=== PATIENT | male | born 1955 | race Caucasian/White ===

== ENCOUNTER → 2016-12-13 | Outpatient (CLI) | payer OTHER ==
[2016-12-13 17:52] LABS: BUN 17 mg/dL (7-18); HEMOGLOBIN 15.5 g/dL (14.1-18.0)
[2016-12-13 17:53] LABS: LYMPH # 3.7 K/mm3 (0.7-4.5); LYMPH % 41.6 % (10-50)
[2016-12-13 18:21] LABS: GFR (ESTIMATED) 76 ML/MIN (>60)
== END ==
LOC: LAB 15:34
PROVIDERS: Emergency Medicine
DX: E78.5 Hyperlipidemia, unspecified (principal)

== ENCOUNTER 2017-07-24 05:41 | Emergency (ER) | payer OTHER ==
[~2017-07-24] VITALS: Ht 180.3 cm; Wt 95.3 kg
[2017-07-24] MEDS ORDERED: LOVASTATIN40 MG PO (05:51)
--- NOTE | 2017-07-24 06:04 | Emergency Room Report ---
History of Present Illness Time Seen by MD Sanchez Presenting Problem in Triage Pt arrived:Walked Presenting Problem:PT C/O PELVIC PAIN.PT REPORTS HURTS WHEN HE HOLDS HIS URINE. 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 N Clinical Suspician of Infection? N Mental Status: 1 - Regular (Normal Baseline) Sepsis Risk:Low Sepsis Risk Have you (or family members/close friends) recently traveled outside the [place]? N If Yes, where/when: Have you had exposure to infectious disease within the past month? N TB? Other? Specify: Source patient, RN notes reviewed, family, old records Exam Limitations no limitations Comment pt with lower abd pain which started last few days with no fever or vomiting Cardiac Chest Pain Chest pain indicative of cardiac No Timing/Duration this evening Severity moderate ALLERGIES Coded Allergies: No Known Allergies (05/14/16) Home Medications Reported Medications Lovastatin 40 MG PO DAILY #30 History Medical History General Angina: No [place]: No Hypertension? No Hyperlipidemia? Yes COPD? No Asthma? No CVA? No Seizures? No Diabetes? No GB Disease: No MRSA? No TB? No Cancer? No Immunization Hx Ped.Immunizations UTD No DT/Tetanus 1-4 YRS Surgical Hx Previous Surgery?Y LIVER BIOPSY APPENDECTOMY Social History Smoking Hx Smoker: Former Smoker Tobacco: No Type N/A Alcohol Alcohol: No Drugs none Review of Systems All Other Systems Reviewed and Negative Constitutional denies fever Eyes denies drainage ENT denies: ear discharge, epistaxis. Respiratory denies cough, denies shortness of breath, denies wheezing Cardiovascular denies chest pain, denies palpitations, denies syncope Gastrointestinal see HPI, denies abdominal pain, denies vomiting, other Genitourinary denies: dysuria, frequency, hesitancy, hematuria. Musculoskeletal denies back pain, denies joint pain, denies joint swelling, denies neck pain Skin denies rash Psychiatric/Neurological denies headache, denies seizure Physical Exam Vital Signs Vital Signs Date Time Temp Pulse Resp B/P Pulse O2 O2 Flow FiO2 Ox Delivery Rate 07/24 0759 80 20 151/100 97 07/24 0728 68 20 159/94 97 09/07 0652 98.7 72 20 157/99 97 07/24 0542 97.7 83 20 145/98 98 - WBC >12,000 or <4,000 or 10% bands? 2 or more SIRS Criteria Met? B/P:159/94 MAP:113 Creatinine >2.0? UA output<0.5ml/kg/hr for 2 hrs? Platelet count >100,000? Lactate >2.0mmol/1? INR >1.2 or PTT > than 60 sec? Evidence of Organ Dysfunction? Provider documented clinical suspician of infection? N Sepsis Criteria Count: 1 Sepsis Risk: Low Sepsis Risk General Appearance no apparent distress Eye Exam - bilateral eye PERRL, bilateral eye EOMI Ear, Nose, Throat normal ENT inspection Neck supple Respiratory Status No: respiratory distress. Lung Sounds bilateral: lungs clear. Cardiovascular regular rate/rhythm, systolic murmur Peripheral Pulses Pulses normal Yes Gastrointestinal soft, no organomegaly, no pulsatile mass, no guarding, no rebound Extremities normal inspection Strength 4 Upper Ext (L), 4 Upper Ext (R), 4 Lower Ext (L), 4 Lower Ext (R) Neurologic alert, veneer layer II-XII nml as tested, no motor/sensory deficits Reflexes Reflexes normal No Mental status normal mood/affect Skin intact Medical Decision Making LABS/Meds/Orders Pt receiving controlled substance in ED? No Results/Orders Laboratory Tests 07/24/17 0650: Urine Color YELLOW, Urine Appearance CLEAR, Urine pH 7.5, Ur Specific [place] 1.015, Urine Protein NEGATIVE, Urine Ketones NEGATIVE, Urine Blood NEGATIVE, Urine Nitrate NEGATIVE, Urine Bilirubin NEGATIVE, Urine Urobilinogen 0.2, Ur Leukocyte Esterase NEGATIVE, Urine WBC OCC, Urine Bacteria 1+, Urine Mucus 1+, Urine Glucose NEGATIVE 07/24/17 0605: Sodium 138, Potassium 4.1, Chloride 101, Carbon Dioxide 28, BUN 13, Creatinine 0.9, Estimated Creat Clear 118, Estimated GFR (MDRD) 86, Glucose 113 H, Calcium 9.2, Total Bilirubin 1.2 H, AST 15, ALT 38, Alkaline Phosphatase 70, Total Protein 7.8, Albumin 4.2, Globulin 3.6 H, Albumin/Globulin Ratio 1.2, WBC 12.9 H, RBC 4.95, Hgb 14.7, Hct 42.0, MCV 84.8, RDW 13.0, Plt Count 212, MPV 7.7, Gran % 65.7, Gran # 8.5 H, Lymphocytes % 27.2, Monocytes % 6.1, Eosinophils % 0.8, Basophils % 0.3, Lymphocytes # 3.5, Monocytes # 0.8, Eosinophils # 0.1, Basophils # 0.0, PUBS MCHC 34.9, MCH 29.6 Current Medication Orders Sig/Paulo Start time Last Medication Dose Route Stop Time Status Admin Ketorolac 30 MG ONCE ONE 07/24 800 DC Tromethamine IV 07/24 801 Ketorolac 0 .STK-MED ONE 07/24 800 DC Tromethamine .ROUTE Levofloxacin 500 MG ONCE ONE 07/24 800 DC PO 07/24 801 Levofloxacin 0 .STK-MED ONE 07/24 800 DC .ROUTE Metronidazole 100 ML ONCE ONE 07/24 800 AC IV 07/24 859 Sodium Chloride 1,000 ML .Q1H1M 07/24 630 DC 07/24 IV 07/24 730 0622 Sodium Chloride 10 ML PRN PRN 07/24 630 AC IV 07/25 06 Sodium Chloride 10 ML PRN PRN 07/24 600 AC IV 07/25 0556 Sodium Chloride 1,000 ML .STK-MED ONE 07/24 600 DC IV Orders Procedure Date/time Status DIET-NOTHING BY MOUTH 07/[address] ABD & PELVIS W/O CONTRAST 07/[address] ABD/PELVIS REQ 07/24 557 Complete IV SALINE LOCK 07/24 557 Active URINALYSIS/COMPLETE 07/24 557 Complete CBC WITH AUTO DIFF 07/24 557 Complete CHEM 12 PROFILE 07/24 557 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 of ischemic chgs XRAY/CT/US XRAY/CT/US CT abdomen, pelvis CT interpretation by discussed w/radiologist Time results known: 799 CT Results abnormal (diverticulitis) Departure Departure Time of Disposition 075 Disposition DC Home or Self Care(routine) Clinical Impression Primary Impression: Diverticulitis Qualifiers: Diverticulitis site: large intestine Diverticulitis bleeding: without bleeding Diverticulitis complication: without perforation or abscess Qualified Code: K57.32 - Diverticulitis of large intestine without perforation or abscess without bleeding Condition STABLE Patient Instructions DI for Diverticulitis Additional Instructions use meds and see pcp friday or friday for follow up Discharge Counseling Counseled pt/family regarding diagnosis, test results, medications/RX, follow up needs Prescriptions Current Visit Scripts Ciprofloxacin HCl (Cipro 500MG TAB) 500 MG PO BID #14 TAB Metronidazole (Flagyl) 500 MG PO TID #21 TAB HYDROCODONE/ACETAMINOPHEN ([place] 5-325 Tablet) 1 TAB PO Q6HP PRN pain #10 TAB ED Critical Care Critical Care No at 0801
--- NOTE | 2017-07-24 06:04 | Emergency Room Report ---
History of Present Illness Time Seen by MD Sanchez Presenting Problem in Triage Pt arrived:Walked Presenting Problem:PT C/O PELVIC PAIN.PT REPORTS HURTS WHEN HE HOLDS HIS URINE. 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 N Clinical Suspician of Infection? N Mental Status: 1 - Regular (Normal Baseline) Sepsis Risk:Low Sepsis Risk Have you (or family members/close friends) recently traveled outside the [place]? N If Yes, where/when: Have you had exposure to infectious disease within the past month? N TB? Other? Specify: Source patient, RN notes reviewed, family, old records Exam Limitations no limitations Comment pt with lower abd pain which started last few days with no fever or vomiting Cardiac Chest Pain Chest pain indicative of cardiac No Timing/Duration this evening Severity moderate ALLERGIES Coded Allergies: No Known Allergies (05/14/16) Home Medications Reported Medications Lovastatin 40 MG PO DAILY #30 History Medical History General Angina: No [place]: No Hypertension? No Hyperlipidemia? Yes COPD? No Asthma? No CVA? No Seizures? No Diabetes? No GB Disease: No MRSA? No TB? No Cancer? No Immunization Hx Ped.Immunizations UTD No DT/Tetanus 1-4 YRS Surgical Hx Previous Surgery?Y LIVER BIOPSY APPENDECTOMY Social History Smoking Hx Smoker: Former Smoker Tobacco: No Type N/A Alcohol Alcohol: No Drugs none Review of Systems All Other Systems Reviewed and Negative Constitutional denies fever Eyes denies drainage ENT denies: ear discharge, epistaxis. Respiratory denies cough, denies shortness of breath, denies wheezing Cardiovascular denies chest pain, denies palpitations, denies syncope Gastrointestinal see HPI, denies abdominal pain, denies vomiting, other Genitourinary denies: dysuria, frequency, hesitancy, hematuria. Musculoskeletal denies back pain, denies joint pain, denies joint swelling, denies neck pain Skin denies rash Psychiatric/Neurological denies headache, denies seizure Physical Exam Vital Signs Vital Signs Date Time Temp Pulse Resp B/P Pulse O2 O2 Flow FiO2 Ox Delivery Rate 07/24 0759 80 20 151/100 97 07/24 0728 68 20 159/94 97 09/07 0652 98.7 72 20 157/99 97 07/24 0542 97.7 83 20 145/98 98 - WBC >12,000 or <4,000 or 10% bands? 2 or more SIRS Criteria Met? B/P:159/94 MAP:113 Creatinine >2.0? UA output<0.5ml/kg/hr for 2 hrs? Platelet count >100,000? Lactate >2.0mmol/1? INR >1.2 or PTT > than 60 sec? Evidence of Organ Dysfunction? Provider documented clinical suspician of infection? N Sepsis Criteria Count: 1 Sepsis Risk: Low Sepsis Risk General Appearance no apparent distress Eye Exam - bilateral eye PERRL, bilateral eye EOMI Ear, Nose, Throat normal ENT inspection Neck supple Respiratory Status No: respiratory distress. Lung Sounds bilateral: lungs clear. 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 No Results/Orders Laboratory Tests 07/24/17 0650: Urine Color YELLOW, Urine Appearance CLEAR, Urine pH 7.5, Ur Specific [place] 1.015, Urine Protein NEGATIVE, Urine Ketones NEGATIVE, Urine Blood NEGATIVE, Urine Nitrate NEGATIVE, Urine Bilirubin NEGATIVE, Urine Urobilinogen 0.2, Ur Leukocyte Esterase NEGATIVE, Urine WBC OCC, Urine Bacteria 1+, Urine Mucus 1+, Urine Glucose NEGATIVE 07/24/17 0605: Sodium 138, Potassium 4.1, Chloride 101, Carbon Dioxide 28, BUN 13, Creatinine 0.9, Estimated Creat Clear 118, Estimated GFR (MDRD) 86, Glucose 113 H, Calcium 9.2, Total Bilirubin 1.2 H, AST 15, ALT 38, Alkaline Phosphatase 70, Total Protein 7.8, Albumin 4.2, Globulin 3.6 H, Albumin/Globulin Ratio 1.2, WBC 12.9 H, RBC 4.95, Hgb 14.7, Hct 42.0, MCV 84.8, RDW 13.0, Plt Count 212, MPV 7.7, Gran % 65.7, Gran # 8.5 H, Lymphocytes % 27.2, Monocytes % 6.1, Eosinophils % 0.8, Basophils % 0.3, Lymphocytes # 3.5, Monocytes # 0.8, Eosinophils # 0.1, Basophils # 0.0, PUBS MCHC 34.9, MCH 29.6 Current Medication Orders Sig/Paulo Start time Last Medication Dose Route Stop Time Status Admin Ketorolac 30 MG ONCE ONE 07/24 800 DC Tromethamine IV 07/24 801 Ketorolac 0 .STK-MED ONE 07/24 800 DC Tromethamine .ROUTE Levofloxacin 500 MG ONCE ONE 07/24 800 DC PO 07/24 801 Levofloxacin 0 .STK-MED ONE 07/24 800 DC .ROUTE Metronidazole 100 ML ONCE ONE 07/24 800 AC IV 07/24 859 Sodium Chloride 1,000 ML .Q1H1M 07/24 630 DC 07/24 IV 07/24 730 0622 Sodium Chloride 10 ML PRN PRN 07/24 630 AC IV 07/25 06 Sodium Chloride 10 ML PRN PRN 07/24 600 AC IV 07/25 0556 Sodium Chloride 1,000 ML .STK-MED ONE 07/24 600 DC IV Orders Procedure Date/time Status DIET-NOTHING BY MOUTH 07/[address] ABD & PELVIS W/O CONTRAST 07/[address] ABD/PELVIS REQ 07/24 557 Complete IV SALINE LOCK 07/24 557 Active URINALYSIS/COMPLETE 07/24 557 Complete CBC WITH AUTO DIFF 07/24 557 Complete CHEM 12 PROFILE 07/24 557 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 of ischemic chgs XRAY/CT/US XRAY/CT/US CT abdomen, pelvis CT interpretation by discussed w/radiologist Time results known: 799 CT Results abnormal (diverticulitis) Departure Departure Time of Disposition 075 Disposition DC Home or Self Care(routine) Clinical Impression Primary Impression: Diverticulitis Qualifiers: Diverticulitis site: large intestine Diverticulitis bleeding: without bleeding Diverticulitis complication: without perforation or abscess Qualified Code: K57.32 - Diverticulitis of large intestine without perforation or abscess without bleeding Condition STABLE Patient Instructions DI for Diverticulitis Additional Instructions use meds and see pcp friday or friday for follow up Discharge Counseling Counseled pt/family regarding diagnosis, test results, medications/RX, follow up needs Prescriptions Current Visit Scripts Ciprofloxacin HCl (Cipro 500MG TAB) 500 MG PO BID #14 TAB Metronidazole (Flagyl) 500 MG PO TID #21 TAB HYDROCODONE/ACETAMINOPHEN ([place] 5-325 Tablet) 1 TAB PO Q6HP PRN pain #10 TAB ED Critical Care Critical Care No at 0801
[2017-07-24 06:23] LABS: HEMOGLOBIN 14.7 g/dL (14.1-18.0); LYMPH # 3.5 K/mm3 (0.7-4.5); LYMPH % 27.2 % (10-50)
[2017-07-24 06:57] LABS: URINE BILIRUBIN - DIPSTICK NEGATIVE (NEG); URINE BLOOD NEGATIVE (NEG)
[2017-07-24] MEDS ORDERED: CIPRO 500MG TA500 MG PO (07:57)
[2017-07-24] MEDS ORDERED: FLAGYL500 M1 PO (07:57)
[2017-07-24] MEDS ORDERED: NORCO 325 MG-51 TAB PO (08:01)
[2017-07-24 09:03] VITALS: BP 142/74
--- NOTE | 2017-07-24 10:01 | RADIOLOGY REPORT PS360 ---
CT ABD PELVIS W/O CONTRAST CLINICAL INDICATION: Abdominal pain and tenderness. Lower abdominal and pelvic pain with frequent urination PELVIC PAIN ORDERING PHYSICIAN: Kal Kaur MD PATIENT AGE: 62 years COMPARISON: None TECHNIQUE: Axial images obtained with sagittal and coronal reformats. PROCEDURE: Oral Contrast: None IV Contrast: None . FINDINGS: No acute finding in the lower chest. Severe coronary artery calcifications Diffuse hepatic steatosis. Cholelithiasis with stone in the region of the neck of the gallbladder. No biliary dilatation. The spleen, adrenal glands, pancreas, kidneys, ureters, and urinary bladder have an unremarkable unenhanced appearance. No renal calculi or ureteral calculi. Reported prior appendectomy. No evidence of intestinal obstruction or free air. There is diverticulosis. There is thickening of the mid aspect of the sigmoid colon with stranding of the pericolic fat consistent with diverticulitis. No abscess or perforation apparent. No acute bony anomalies. IMPRESSION: 1. The findings are consistent with diverticulitis of the sigmoid colon with diverticulosis. No abscess or perforation is evident. Follow-up is recommended following adequate treatment as neoplasm with paracolic infiltration could have a similar appearance. 2. Cholelithiasis with a small gallstone present in the neck of the gallbladder with hepatic steatosis 3. Coronary artery disease
== END 2017-07-24 09:04 | disposition home or self-care (01) ==
LOC: ER 05:41
PROVIDERS: Emergency Medicine
DX: K57.32 Diverticulitis of large intestine without perforation or abscess without bleeding (principal); Z87.891 Personal history of nicotine dependence; Z79.899 Other long term (current) drug therapy; E78.5 Hyperlipidemia, unspecified

== ENCOUNTER → 2017-10-13 | Outpatient (CLI) | payer OTHER ==
[~2017-10-13] MED LIST: CIPRO 500MG TA500 MG PO; FLAGYL500 M1 PO; LOVASTATIN40 MG PO; NORCO 325 MG-51 TAB PO
[2017-10-13 13:35] LABS: BUN 13 mg/dL (7-18)
[2017-10-13 13:36] LABS: GFR (ESTIMATED) 86 ML/MIN (>60)
== END ==
LOC: LAB 10:47
PROVIDERS: Surgery
DX: K60.2 Anal fissure, unspecified (principal); Z01.812 Encounter for preprocedural laboratory examination

== ENCOUNTER 2017-11-05 07:41 | Day surgery (SDC) | payer OTHER ==
[~2017-11-05] VITALS: Ht 177.8 cm; Wt 93.0 kg
--- NOTE | 2017-11-05 09:28 | Operative Note ---
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 He recently underwent colonoscopy. This was done for screening purposes as initial colonoscopy but he also had a history of diverticulitis which was self-limited recently. Colonoscopy revealed some diverticulosis without diverticulitis. He had internal hemorrhoids. However, there was also an intra-anal lesion which may be a chronically inflamed hemorrhoid but could also be a polypoid lesion. This was unable to be removed by colonoscopy given its very low standing nature. It was recommended he undergo excision due to the unusual nature and appearance of this lesion. Findings: Polypoid lesion, probable chronically irritated hemorrhoid Procedure Description: Consent was obtained and patient taken the operating room. Gen. anesthesia was induced. He was positioned in lithotomy position. Area was prepped and draped in the standard surgical fashion. Digital examination was performed which revealed some internal hemorrhoids. [place] anoscope was inserted. Thorough circumferential anoscopy was carried out. He had some internal hemorrhoids. However in the RIGHT posterior lateral location there was noted to be somewhat of a pedunculated polypoid lesion intra-anally. This was grasped and elevated. Using sharp dissection it was excised from the anoderm. It was sent off as specimen. The defect was then closed with a running locking 3-0 chromic and oversewn with simple running 3-0 chromic. 3-0 chromic [id number] suture was placed for hemostasis as well. Local anesthetic was infiltrated. Wound was irrigated prior to closing. There was good hemostasis. Gelfoam soaked in topical hemostatic was inserted into the anal canal. Dressing was applied. EBL (ml): 20 Anesthesia: Gen. Specimens: Anal lesion Disposition Disposition: To PACU at 1921
--- NOTE | 2017-11-05 09:28 | Operative Note ---
Surgeon/Diagnoses Surgeon/Police Justice(s) Date of procedure: 11/05/17 Surgeon: Julien Bond Diagnoses Pre-op diagnosis: Intra-anal lesion Post-op diagnosis Same Procedure Procedure Procedure: Transanal excision of intra-anal lesion Indications: JOSY MONTE is a 62 year-old Male. He recently underwent colonoscopy. This was done for screening purposes as initial colonoscopy but he also had a history of diverticulitis which was self-limited recently. Colonoscopy revealed some diverticulosis without diverticulitis. He had internal hemorrhoids. However, there was also an intra-anal lesion which may be a chronically inflamed hemorrhoid but could also be a polypoid lesion. This was unable to be removed by colonoscopy given its very low standing nature. It was recommended he undergo excision due to the unusual nature and appearance of this lesion. Findings: Polypoid lesion, probable chronically irritated hemorrhoid Procedure Description: Consent was obtained and patient taken the operating room. Gen. anesthesia was induced. He was positioned in lithotomy position. Area was prepped and draped in the standard surgical fashion. Digital examination was performed which revealed some internal hemorrhoids. [place] anoscope was inserted. Thorough circumferential anoscopy was carried out. He had some internal hemorrhoids. However in the RIGHT posterior lateral location there was noted to be somewhat of a pedunculated polypoid lesion intra-anally. This was grasped and elevated. Using sharp dissection it was excised from the anoderm. It was sent off as specimen. The defect was then closed with a running locking 3-0 chromic and oversewn with simple running 3-0 chromic. 3-0 chromic [id number] suture was placed for hemostasis as well. Local anesthetic was infiltrated. Wound was irrigated prior to closing. There was good hemostasis. Gelfoam soaked in topical hemostatic was inserted into the anal canal. Dressing was applied. EBL (ml): 20 Anesthesia: Gen. Specimens: Anal lesion Disposition Disposition: To PACU at 0968
--- NOTE | 2017-11-05 09:30 | Anesthesia Record ---
Anesthesia Record Part II Discharge time: 957 Destination: Same day surgery PACU nurse assessment review? Yes Patient is: Stable Anesthesia complications? No at 0930
--- NOTE | 2017-11-05 09:30 | Anesthesia Record ---
Anesthesia Record Part I Total IV fluids: 200 EBL (ml): 10 Urine Output: 0 B/P: 118/77 % SaO2: 95 Pulse: 58 Resps: 18 Temp: 98.0 Patient is: Drowsy, Stable Stable to PACU at: 0928 at 0975
[2017-11-05 14:57] VITALS: BP 130/79
== END 2017-11-05 10:40 | disposition home or self-care (01) ==
LOC: SDC 07:41
PROVIDERS: Surgery
PROC: 0DBQ7ZX Excision of Anus, Via Natural or Artificial Opening, Diagnostic (ICD-10-PCS; principal; 2017-11-05 09:00)
DX: D37.8 Neoplasm of uncertain behavior of other specified digestive organs (principal)